=== PATIENT | female | born 1965 | race Caucasian/White ===

== ENCOUNTER → 2017-04-28 | Outpatient (CLI) | payer MEDICARE, OTHER ==
[2017-04-28 16:56] LABS: Blood Urea Nitrogen 17 mg/dL (7-17); Carbamazepine (Tegretol) 6.8 ug/mL; Non-African American GFR(MDRD) >60 (>60 ml/min/1.73 sqM)
== END | disposition home or self-care (01) ==
LOC: LABWHC1 16:25
PROVIDERS: ATTEND Psychiatry & Neurology Neurology
DX: G40.909 Epilepsy, unspecified, not intractable, without status epilepticus (principal)
CPT/HCPCS: 36415; 80156; 82565; 84520

== ENCOUNTER → 2017-04-29 | Outpatient (CLI) | payer MEDICARE, OTHER ==
--- NOTE | 2017-04-29 11:41 | MR ---
EXAMINATION TYPE: MR brain wo/w con DATE OF EXAM: 04/29/2017 COMPARISON: NONE HISTORY: brain tumor, seizure disorder, dizziness TECHNIQUE: Multiplanar, multisequence images of the brain and brainstem is performed without and with IV contras t, utilizing 15 mL intravenous MultiHance . FINDINGS: Diffusion weighted images demonstrate no evidence of a recent infarct or other diffusion ab normality. There is no extra-axial fluid collection. Encephalomalacia with some surrounding white m atter signal change compatible with chronic infarct involving the external capsule on the left. Extra -axial phenomenon present at the left lateral ventricle. The brain volume is age appropriate. Midline structures demonstrate normal morphology. The craniocervical junction appears within normal limits. Post contrast images demonstrate no abnormal enhancement. The dural venous sinuses appear pa tent. The visualized sinuses are clear and the globes are intact. IMPRESSION: Chronic infarct as described.
== END | disposition home or self-care (01) ==
LOC: RADMRIMAIN 09:35
PROVIDERS: ATTEND Psychiatry & Neurology Neurology
DX: I63.9 Cerebral infarction, unspecified (principal)
CPT/HCPCS: 70553; A9577

== ENCOUNTER 2019-04-07 15:43 | Emergency (ER) | payer MEDICARE ==
[2019-04-07 15:54] VITALS: RESP 18
[2019-04-07] MEDS ORDERED: SODIUM CHLORIDE 0.9% 1,000 ML IV ONE (16:26)
[2019-04-07 16:36] LABS: Glucose,Whole Blood 100 mg/dL (75-99)
[2019-04-07 16:38] LABS: Basophils % (A) 0 %; Eosinophils # (A) 0.1 k/uL (0-0.7); Eosinophils % (A) 2 %; HCT 25.1 % (34.0-46.0); HGB 7.7 gm/dL (11.4-16.0); Hypochromasia Marked; Lymphocytes # (A) 1.6 k/uL (1.0-4.8); Lymphocytes % (A) 23 %; MCH 24.6 pg (25.0-35.0); MCHC 30.5 g/dL (31.0-37.0); MCV 80.7 fL (80.0-100.0); Mean Platelet Volume 6.4; Monocytes # (A) 0.4 k/uL (0-1.0); Monocytes % (A) 6 %; Neutrophils # (A) 4.5 k/uL (1.3-7.7); Neutrophils % (A) 67 %; Platelet Count 420 k/uL (150-450); RBC 3.11 m/uL (3.80-5.40); RDW 15.6 % (11.5-15.5); WBC 6.8 k/uL (3.8-10.6)
[2019-04-07 16:45] LABS: Albumin 3.7 g/dL (3.5-5.0); Calcium 8.6 mg/dL (8.4-10.2); Potassium 4.2 mmol/L (3.5-5.1); Total Bilirubin 0.2 mg/dL (0.2-1.3); Total Protein 6.5 g/dL (6.3-8.2)
[2019-04-07 16:46] LABS: Partial Thromboplastin Time 24.1 sec (22.0-30.0); Prothrombin Time 10.7 sec (9.0-12.0)
--- NOTE | 2019-04-07 16:48 | CT ---
EXAMINATION TYPE: CT brain wo con DATE OF EXAM: 04/07/2019 COMPARISON: MR scan brain 04/29/2017 HISTORY: Patient poor historian CT DLP: 1046.4 mGycm Automated exposure control for dose reduction was used. FINDINGS: There is large area of hypodensity involving the anterior and posterior left internal capsule consist ent with old infarct. There is no mass effect nor midline shift. There is some asymmetric enlargement of the left lateral ventricle. There is no evidence of intracranial hemorrhage. Calvarium is intact. IMPRESSION: OLD INFARCT LEFT INTERNAL CAPSULE. NO ACUTE INTRACRANIAL ABNORMALITY. NO CHANGE COMPARED TO OLD MR SC AN.
--- NOTE | 2019-04-07 17:02 | ED ---
Altered Mental Status HPI - General Chief Complaint: Altered Mental Status Stated Complaint: POSS SEIZURE Time Seen by Provider: 04/07/19 16:14 Source: patient, EMS, RN notes reviewed, old records reviewed Mode of arrival: EMS Limitations: no limitations - History of Present Illness Initial Comments: This is a 54-year-old female the ER for evaluation. Patient resents today for evaluation regarding altered mental status syncopal versus seizure event. Patient has history of seizures history of CVA. Patient was at the store she did fall backward cellophane eyes rolled her back. He was noted patient did not fall was lately ground presents by EMS. On arrival to EMS patient is currently postictal. Although improving. MD Complaint: altered mental status, other (Possible seizure) -: minutes(s) Severity: moderate Context: history of similar presentation Associated Symptoms: denies other symptoms - Related Data Home Medications Medication Instructions Recorded Confirmed carBAMazepine [TEGretol] 200 mg PO TID 02/17/14 04/07/19 Amitriptyline HCl [Elavil] 100 mg PO HS 04/07/19 04/07/19 Amoxicillin 500 mg PO Q8H 04/07/19 04/07/19 Citalopram Hydrobromide [CeleXA] 40 mg PO DAILY 04/07/19 04/07/19 Cyclobenzaprine [Flexeril] 10 mg PO TID 04/07/19 04/07/19 Levothyroxine Sodium [Synthroid] 100 mcg PO DAILY 04/07/19 04/07/19 Meloxicam [Mobic] 7.5 mg PO DAILY 04/07/19 04/07/19 Mirtazapine [Remeron] 45 mg PO HS 04/07/19 04/07/19 Pravastatin Sodium [Pravachol] 80 mg PO DAILY 04/07/19 04/07/19 Topiramate [Topamax] 100 mg PO BID 04/07/19 04/07/19 Previous Rx's Medication Instructions Recorded Nitrofurantoin Monohyd/M-Cryst 100 mg PO Q12HR #14 cap 04/07/19 [Macrobid] Allergies Allergy/AdvReac Type Severity Reaction Status Date / Time No Known Allergies Allergy Verified 04/07/19 15:54 Review of Systems ROS Statement: Those systems with pertinent positive or pertinent negative responses have been documented in the HPI. ROS Other: All systems not noted in ROS Statement are negative. Past Medical History Past Medical History: GERD/Reflux, Hyperlipidemia, Seizure Disorder Additional Past Medical History / Comment(s): hypothyroid , History of Any Multi-Drug Resistant Organisms: None Reported Past Surgical History: Cholecystectomy Past Psychological History: Anxiety, Depression Smoking Status: Never smoker Past Alcohol Use History: None Reported Past Drug Use History: None Reported General Exam Limitations: no limitations General appearance: alert, in no apparent distress Head exam: Present: atraumatic, normocephalic, normal inspection Eye exam: Present: normal appearance, PERRL, EOMI. Absent: scleral icterus, conjunctival injection, periorbital swelling ENT exam: Present: normal exam, mucous membranes moist Neck exam: Present: normal inspection. Absent: tenderness, meningismus, lymphadenopathy Respiratory exam: Present: normal lung sounds bilaterally. Absent: respiratory distress, wheezes, rales, rhonchi, stridor Cardiovascular Exam: Present: regular rate, normal rhythm, normal heart sounds. Absent: systolic murmur, diastolic murmur, rubs, gallop, clicks GI/Abdominal exam: Present: soft, normal bowel sounds. Absent: distended, tenderness, guarding, rebound, rigid Extremities exam: Present: normal inspection, full ROM, normal capillary refill. Absent: tenderness, pedal edema, joint swelling, calf tenderness Back exam: Present: normal inspection Neurological exam: Present: alert, oriented X3, CN II-XII intact Psychiatric exam: Present: normal affect, normal mood Skin exam: Present: warm, dry, intact, normal color. Absent: rash Course Vital Signs 04/07/19 04/07/19 15:51 16:49 Temperature 98.5 F Pulse Rate 63 83 Respiratory 18 18 Rate Blood Pressure 117/80 125/80 O2 Sat by Pulse 98 98 Oximetry - Reevaluation(s) Reevaluation #1: 04/07/19 17:45 Medical records reviewed Reevaluation #2: 04/07/19 17:45 She continues to feel asymptomatic and fine here in the ER Reevaluation #3: 04/07/19 17:45 Patient completely awake and alert Reevaluation #4: 04/07/19 17:45 Patient states she's taking all medications as directed Medical Decision Making - Medical Decision Making D4 female the ER for evaluation of altered mental status versus seizure likely seizure versus near syncope. Patient will continue seizure medications at home and can be discharged - Lab Data Result diagrams: 04/07/19 15:56 04/07/19 15:56 Lab Results 04/07/19 04/07/19 04/07/19 Range/Units 15:56 15:56 15:56 WBC 6.8 (3.8-10.6) k/uL RBC 3.11 L (3.80-5.40) m/uL Hgb 7.7 L (11.4-16.0) gm/dL Hct 25.1 L (34.0-46.0) % MCV 80.7 (80.0-100.0) fL MCH 24.6 L (25.0-35.0) pg MCHC 30.5 L (31.0-37.0) g/dL RDW 15.6 H (11.5-15.5) % Plt Count 420 (150-450) k/uL Neutrophils % 67 % Lymphocytes % 23 % Monocytes % 6 % Eosinophils % 2 % Basophils % 0 % Neutrophils # 4.5 (1.3-7.7) k/uL Lymphocytes # 1.6 (1.0-4.8) k/uL Monocytes # 0.4 (0-1.0) k/uL Eosinophils # 0.1 (0-0.7) k/uL Basophils # 0.0 (0-0.2) k/uL Hypochromasia Marked PT 10.7 (9.0-12.0) sec INR 1.0 (<1.2) APTT 24.1 (22.0-30.0) sec Sodium 136 L (137-145) mmol/L Potassium 4.2 (3.5-5.1) mmol/L Chloride 107 (98-107) mmol/L Carbon Dioxide 19 L (22-30) mmol/L Anion Gap 10 mmol/L BUN 10 (7-17) mg/dL Creatinine 1.03 (0.52-1.04) mg/dL Est GFR (CKD-EPI)AfAm 71 (>60 ml/min/1.73 sqM) Est GFR (CKD-EPI)NonAf 61 (>60 ml/min/1.73 sqM) Glucose 99 (74-99) mg/dL POC Glucose (mg/dL) (75-99) mg/dL POC Glu Director Of Cardiac Rehabilitation ID Calcium 8.6 (8.4-10.2) mg/dL Total Bilirubin 0.2 (0.2-1.3) mg/dL AST 18 (14-36) U/L ALT 19 (9-52) U/L Alkaline Phosphatase 122 (38-126) U/L Creatine Kinase 138 H (30-135) U/L Troponin I (0.000-0.034) ng/mL Total Protein 6.5 (6.3-8.2) g/dL Albumin 3.7 (3.5-5.0) g/dL Urine Color Urine Appearance (Clear) Urine pH (5.0-8.0) Ur Specific [place] (1.001-1.035) Urine Protein (Negative) Urine Glucose (UA) (Negative) Urine Ketones (Negative) Urine Blood (Negative) Urine Nitrite (Negative) Urine Bilirubin (Negative) Urine Urobilinogen (<2.0) mg/dL Ur Leukocyte Esterase (Negative) Urine RBC (0-5) /hpf Urine WBC (0-5) /hpf Urine WBC Clumps (None) /hpf Ur Squamous Epith Cells (0-4) /hpf Hyaline Casts (0-2) /lpf Urine Mucus (None) /hpf Urine Opiates Screen (NotDetected) Ur Oxycodone Screen (NotDetected) Urine Methadone Screen (NotDetected) Ur Propoxyphene Screen (NotDetected) Ur Barbiturates Screen (NotDetected) Carbamazepine ug/mL U Tricyclic Antidepress (NotDetected) Ur Phencyclidine Scrn (NotDetected) Ur Amphetamines Screen (NotDetected) U Methamphetamines Scrn (NotDetected) U Benzodiazepines Scrn (NotDetected) Urine Cocaine Screen (NotDetected) U Marijuana (THC) Screen (NotDetected) 04/07/19 04/07/19 04/07/19 Range/Units 15:56 15:56 16:34 WBC (3.8-10.6) k/uL RBC (3.80-5.40) m/uL Hgb (11.4-16.0) gm/dL Hct (34.0-46.0) % MCV (80.0-100.0) fL MCH (25.0-35.0) pg MCHC (31.0-37.0) g/dL RDW (11.5-15.5) % Plt Count (150-450) k/uL Neutrophils % % Lymphocytes % % Monocytes % % Eosinophils % % Basophils % % Neutrophils # (1.3-7.7) k/uL Lymphocytes # (1.0-4.8) k/uL Monocytes # (0-1.0) k/uL Eosinophils # (0-0.7) k/uL Basophils # (0-0.2) k/uL Hypochromasia PT (9.0-12.0) sec INR (<1.2) APTT (22.0-30.0) sec Sodium (137-145) mmol/L Potassium (3.5-5.1) mmol/L Chloride (98-107) mmol/L Carbon Dioxide (22-30) mmol/L Anion Gap mmol/L BUN (7-17) mg/dL Creatinine (0.52-1.04) mg/dL Est GFR (CKD-EPI)AfAm (>60 ml/min/1.73 sqM) Est GFR (CKD-EPI)NonAf (>60 ml/min/1.73 sqM) Glucose (74-99) mg/dL POC Glucose (mg/dL) 100 H (75-99) mg/dL POC Glu Director Of Cardiac Rehabilitation ID Nayely Reinoso Calcium (8.4-10.2) mg/dL Total Bilirubin (0.2-1.3) mg/dL AST (14-36) U/L ALT (9-52) U/L Alkaline Phosphatase (38-126) U/L Creatine Kinase (30-135) U/L Troponin I <0.012 (0.000-0.034) ng/mL Total Protein (6.3-8.2) g/dL Albumin (3.5-5.0) g/dL Urine Color Urine Appearance (Clear) Urine pH (5.0-8.0) Ur Specific [place] (1.001-1.035) Urine Protein (Negative) Urine Glucose (UA) (Negative) Urine Ketones (Negative) Urine Blood (Negative) Urine Nitrite (Negative) Urine Bilirubin (Negative) Urine Urobilinogen (<2.0) mg/dL Ur Leukocyte Esterase (Negative) Urine RBC (0-5) /hpf Urine WBC (0-5) /hpf Urine WBC Clumps (None) /hpf Ur Squamous Epith Cells (0-4) /hpf Hyaline Casts (0-2) /lpf Urine Mucus (None) /hpf Urine Opiates Screen (NotDetected) Ur Oxycodone Screen (NotDetected) Urine Methadone Screen (NotDetected) Ur Propoxyphene Screen (NotDetected) Ur Barbiturates Screen (NotDetected) Carbamazepine 9.7 ug/mL U Tricyclic Antidepress (NotDetected) Ur Phencyclidine Scrn (NotDetected) Ur Amphetamines Screen (NotDetected) U Methamphetamines Scrn (NotDetected) U Benzodiazepines Scrn (NotDetected) Urine Cocaine Screen (NotDetected) U Marijuana (THC) Screen (NotDetected) 04/07/19 04/07/19 Range/Units 17:11 17:11 WBC (3.8-10.6) k/uL RBC (3.80-5.40) m/uL Hgb (11.4-16.0) gm/dL Hct (34.0-46.0) % MCV (80.0-100.0) fL MCH (25.0-35.0) pg MCHC (31.0-37.0) g/dL RDW (11.5-15.5) % Plt Count (150-450) k/uL Neutrophils % % Lymphocytes % % Monocytes % % Eosinophils % % Basophils % % Neutrophils # (1.3-7.7) k/uL Lymphocytes # (1.0-4.8) k/uL Monocytes # (0-1.0) k/uL Eosinophils # (0-0.7) k/uL Basophils # (0-0.2) k/uL Hypochromasia PT (9.0-12.0) sec INR (<1.2) APTT (22.0-30.0) sec Sodium (137-145) mmol/L Potassium (3.5-5.1) mmol/L Chloride (98-107) mmol/L Carbon Dioxide (22-30) mmol/L Anion Gap mmol/L BUN (7-17) mg/dL Creatinine (0.52-1.04) mg/dL Est GFR (CKD-EPI)AfAm (>60 ml/min/1.73 sqM) Est GFR (CKD-EPI)NonAf (>60 ml/min/1.73 sqM) Glucose (74-99) mg/dL POC Glucose (mg/dL) (75-99) mg/dL POC Glu Director Of Cardiac Rehabilitation ID Calcium (8.4-10.2) mg/dL Total Bilirubin (0.2-1.3) mg/dL AST (14-36) U/L ALT (9-52) U/L Alkaline Phosphatase (38-126) U/L Creatine Kinase (30-135) U/L Troponin I (0.000-0.034) ng/mL Total Protein (6.3-8.2) g/dL Albumin (3.5-5.0) g/dL Urine Color Yellow Urine Appearance Clear (Clear) Urine pH 6.5 (5.0-8.0) Ur Specific [place] 1.012 (1.001-1.035) Urine Protein Negative (Negative) Urine Glucose (UA) Negative (Negative) Urine Ketones Negative (Negative) Urine Blood Negative (Negative) Urine Nitrite Negative (Negative) Urine Bilirubin Negative (Negative) Urine Urobilinogen <2.0 (<2.0) mg/dL Ur Leukocyte Esterase Large H (Negative) Urine RBC 1 (0-5) /hpf Urine WBC 35 H (0-5) /hpf Urine WBC Clumps Occasional H (None) /hpf Ur Squamous Epith Cells <1 (0-4) /hpf Hyaline Casts 1 (0-2) /lpf Urine Mucus Rare H (None) /hpf Urine Opiates Screen Not Detected (NotDetected) Ur Oxycodone Screen Not Detected (NotDetected) Urine Methadone Screen Not Detected (NotDetected) Ur Propoxyphene Screen Not Detected (NotDetected) Ur Barbiturates Screen Not Detected (NotDetected) Carbamazepine ug/mL U Tricyclic Antidepress Detected H (NotDetected) Ur Phencyclidine Scrn Not Detected (NotDetected) Ur Amphetamines Screen Not Detected (NotDetected) U Methamphetamines Scrn Not Detected (NotDetected) U Benzodiazepines Scrn Not Detected (NotDetected) Urine Cocaine Screen Not Detected (NotDetected) U Marijuana (THC) Screen Not Detected (NotDetected) - EKG Data -: EKG Interpreted by Me (EKG shows sinus rhythm rate of 70, WV 170, QRS 90, QTc 490) - Radiology Data Radiology results: report reviewed (CT brain is negative for acute disease), image reviewed Disposition Clinical Impression: Altered mental status, Recurrent seizures, Near syncope Disposition: HOME SELF-CARE Condition: Good Instructions (If sedation given, give patient instructions): Altered Mental Status (ED), Recurrent Seizures in Adults (ED) Prescriptions: Nitrofurantoin Monohyd/M-Cryst [Macrobid] 100 mg PO Q12HR #14 cap Is patient prescribed a controlled substance at d/c from ED?: No Referrals: None,Stated [Primary Care Provider] - 1-2 days
[2019-04-07 17:25] LABS: Appearance,Urine Clear (Clear); Bilirubin,Urine Negative (Negative); Blood,Urine Negative (Negative); Color,Urine Yellow; Glucose,Urine (UA) Negative (Negative); Hyaline Casts,Urine 1 /lpf (0-2); Ketones,Urine Negative (Negative); Leukocyte Esterase,Urine Large (Negative); Mucus,Urine Rare /hpf; Nitrite,Urine Negative (Negative); PH, Urine 6.5 (5.0-8.0); Protein,Urine Negative (Negative); RBC,Urine 1 /hpf (0-5); Specific Gravity,Urine 1.012 (1.001-1.035); Squamous Epithelial Cell,Urine <1 /hpf (0-4); Urobilinogen,Urine <2.0 mg/dL (<2.0); WBC,Urine 35 /hpf (0-5)
[2019-04-07 17:32] LABS: Amphetamine Screen,Urine Not Detected (NotDetected); Barbiturate Screen,Urine Not Detected (NotDetected); Benzodiazepines Screen,Urine Not Detected (NotDetected); Cocaine Screen,Urine Not Detected (NotDetected); Methadone Screen, Urine Not Detected (NotDetected); Opiate Screen,Urine Not Detected (NotDetected); Oxycodone Screen, Urine Not Detected (NotDetected); Phencyclidine Screen,Urine Not Detected (NotDetected); Tricyclic Antidepressant,Urine Detected (NotDetected); Urn Cannabinoid Scrn Not Detected (NotDetected)
[2019-04-07] MEDS ORDERED: KETOROLAC 30 MG/ML 1 ML VIAL IVP STA (17:43)
[2019-04-07 18:44] VITALS: BP 114/75; PULSE 78; TEMP 98
== END 2019-04-07 18:44 | disposition home or self-care (01) ==
LOC: EC 15:43
DX: G40.909 Epilepsy, unspecified, not intractable, without status epilepticus (principal); R41.82 Altered mental status, unspecified; R55 Syncope and collapse; E78.5 Hyperlipidemia, unspecified; E03.9 Hypothyroidism, unspecified; F41.9 Anxiety disorder, unspecified; F32.9 Major depressive disorder, single episode, unspecified; Z86.73 Personal history of transient ischemic attack (TIA), and cerebral infarction without residual deficits; Z90.49 Acquired absence of other specified parts of digestive tract; Z79.1 Long term (current) use of non-steroidal anti-inflammatories (NSAID); Z79.890 Hormone replacement therapy; Z79.899 Other long term (current) drug therapy
CPT/HCPCS: 36415; 93005; 80156; 80053; 80201; 82550; 84484; 85025; 85610; 85730; 81001; 80306; 87086; 70450; 99285; 96365; 96361 ×2; J0696

== ENCOUNTER → 2019-10-18 | Outpatient (CLI) | payer MEDICARE ==
--- NOTE | 2019-10-19 13:19 | MM ---
Reason for exam: screening (asymptomatic). Baseline mammogram. History: Patient is postmenopausal and is nulliparous. Physical Findings: A clinical breast exam by your physician is recommended on an annual basis and results should be correlated with mammographic findings. MG 3D Screening Mammo W/Cad Bilateral CC and MLO view(s) were taken. The breast tissue is heterogeneously dense. This may lower the sensitivity of mammography. Finding #1: There is a 12 mm high density mass in the upper quadrant, central position of the left breast. Finding #2: There are typically benign calcifications in the right breast. ASSESSMENT: Incomplete: need additional imaging evaluation, BI-RAD 0 RECOMMENDATION: Special view mammogram of the left breast. If lesion persists on supplemental views, image directed ultrasound is recommended. [facility] will attempt to contact patient to return for supplemental views and ultrasound if indicated.
== END | disposition home or self-care (01) ==
LOC: RADMAMWWP 13:36
PROVIDERS: ATTEND Family Medicine
DX: Z12.31 Encounter for screening mammogram for malignant neoplasm of breast (principal)
CPT/HCPCS: 77063; 77067

== ENCOUNTER → 2019-11-15 | Outpatient (CLI) | payer MEDICARE ==
--- NOTE | 2019-11-15 11:27 | MM ---
Reason for exam: additional evaluation requested from abnormal screening. Last mammogram was performed 1 month ago. History: Patient is postmenopausal and is nulliparous. Family history of breast cancer in sister and breast cancer in mother at age 78. Physical Findings: Nurse did not find any significant physical abnormalities on exam. MG Work Up Mamm w CAD LT Spot compression CC, spot compression MLO, and LM view(s) were taken of the left breast. Prior study comparison: October 18, 2019, bilateral MG 3d screening mammo w/cad. The breast tissue is heterogeneously dense. This may lower the sensitivity of mammography. Central asymmetric density on the CC view, incompletely disperses on spot CC. Some asymmetric density remains on the LM view. No persisting abnormality on spot ML. These results were verbally communicated with the patient and result sheet given to the patient on 11/15/19. ASSESSMENT: Incomplete: need additional imaging evaluation, BI-RAD 0 RECOMMENDATION: Ultrasound of the left breast. (11-1 o'clock)
--- NOTE | 2019-11-15 11:28 | USB ---
Reason for exam: additional evaluation requested from abnormal screening. History: Patient is postmenopausal and is nulliparous. Family history of breast cancer in sister and breast cancer in mother at age 78. US Breast Workup Limited LT Technologist: Sherry Lilly Left limited breast ultrasound including focal area of concern, retroareolar and axilla demonstrates no cystic or solid lesion seen. Scanned 11-2 o'clock. Dense tissues seen at 1 o'clock. These results were verbally communicated with the patient and result sheet given to the patient on 11/15/19. ASSESSMENT: Probably benign, BI-RAD 3 RECOMMENDATION: Follow-up diagnostic mammogram of the left breast in 6 months.
== END | disposition home or self-care (01) ==
LOC: RADMAMWWP 08:57
PROVIDERS: ATTEND Family Medicine
DX: R92.8 Other abnormal and inconclusive findings on diagnostic imaging of breast (principal)
CPT/HCPCS: 77065

== ENCOUNTER 2022-09-12 15:38 | Emergency (ER) | payer MEDICARE, OTHER ==
[2022-09-12 16:02] VITALS: RESP 18; TEMP 98
--- NOTE | 2022-09-12 17:33 | ED ---
General Adult HPI - General Chief complaint: Altered Mental Status Stated complaint: mental health Time Seen by Provider: 09/12/22 16:36 Source: patient Mode of arrival: ambulatory Limitations: altered mental status - History of Present Illness Initial comments: This patient is a 57-year-old woman brought to have evaluation after suspected seizure. The patient's gives most of the history. He states she does have underlying seizure history, having proximally 3-4 seizures per year. She is on anticonvulsant medication. He relates that he had taken her with him as he was doing a job at a store. When he went to find her, she was confused and appeared to him as if she had had a seizure. He brings her here to have evaluation. He states that she is now back at her baseline. The patient is denying pains. She denies dyspnea. Onset/Timin -: hour(s) Severity scale (1-10): 0 Improves with: none Worsens with: none Associated Symptoms: denies other symptoms - Related Data Home Medications Medication Instructions Recorded Confirmed carBAMazepine [TEGretol] 200 mg PO TID 02/17/14 09/12/22 Citalopram Hydrobromide [CeleXA] 40 mg PO DAILY 04/07/19 09/12/22 Mirtazapine [Remeron] 45 mg PO HS 04/07/19 09/12/22 Pravastatin Sodium [Pravachol] 80 mg PO DAILY 04/07/19 09/12/22 Baclofen [Lioresal] 10 mg PO BID 09/12/22 09/12/22 Levothyroxine Sodium [Synthroid] 125 mcg PO [id number] 09/12/22 09/12/22 Metoprolol Tartrate [Lopressor] 12.5 mg PO BID 09/12/22 09/12/22 Omeprazole [PriLOSEC] 40 mg PO DAILY 09/12/22 09/12/22 Allergies Allergy/AdvReac Type Severity Reaction Status Date / Time No Known Allergies Allergy Verified 09/12/22 18:02 Review of Systems ROS Statement: Those systems with pertinent positive or pertinent negative responses have been documented in the HPI. ROS Other: All systems not noted in ROS Statement are negative. Limitations: ROS unobtainable due to patients medical condition Constitutional: Denies: fever Respiratory: Denies: cough, dyspnea Cardiovascular: Denies: chest pain Gastrointestinal: Denies: abdominal pain, vomiting Neurological: Reports: as per HPI, confusion. Denies: headache Past Medical History Past Medical History: GERD/Reflux, Hyperlipidemia, Seizure Disorder Additional Past Medical History / Comment(s): hypothyroid , History of Any Multi-Drug Resistant Organisms: None Reported Past Surgical History: Cholecystectomy Past Psychological History: Anxiety, Depression Past Alcohol Use History: None Reported Past Drug Use History: None Reported General Exam Limitations: no limitations General appearance: alert, in no apparent distress Head exam: Present: atraumatic, normocephalic Eye exam: Present: normal appearance. Absent: scleral icterus, conjunctival injection Neck exam: Present: normal inspection, full ROM. Absent: meningismus Respiratory exam: Present: normal lung sounds bilaterally. Absent: respiratory distress, wheezes, rales, rhonchi, stridor Cardiovascular Exam: Present: regular rate, normal rhythm, normal heart sounds. Absent: systolic murmur, diastolic murmur, rubs, gallop GI/Abdominal exam: Present: soft. Absent: distended, tenderness, guarding, rebound, rigid, mass Extremities exam: Present: normal inspection, normal capillary refill. Absent: pedal edema, calf tenderness Back exam: Present: normal inspection. Absent: CVA tenderness (R), CVA ten derness (L) Neurological exam: Present: alert, other. Absent: oriented X3, motor sensory deficit Skin exam: Present: warm, dry, intact, normal color. Absent: rash Course Vital Signs 09/12/22 09/12/22 15:54 18:55 Temperature 98 F Pulse Rate 62 60 Respiratory 18 18 Rate Blood Pressure 101/67 105/52 O2 Sat by Pulse 98 99 Oximetry EKG Findings - EKG Comments: EKG Findings:: There is a possible right ventricular conduction delay based on RSR prime in V1. Low-voltage QRS complex - EKG Results: EKG: interpreted by JULI, sinus rhythm (Rate 58 bpm) Medical Decision Making - Medical Decision Making Patient's 57-year-old woman with history of known seizure disorder, suspected of having seizure tonight. She has returned to baseline. The workup here is unremarkable. Discussed appropriate further care and follow-up with patient and patient's . - Lab Data Result diagrams: 09/12/22 19:55 09/12/22 19:55 Lab Results 09/12/22 09/12/22 09/12/22 Range/Units 19:55 19:55 19:55 WBC 6.6 (3.8-10.6) k/uL RBC 4.02 (3.80-5.40) m/uL Hgb 12.8 (11.4-16.0) gm/dL Hct 37.4 (34.0-46.0) % MCV 93.1 (80.0-100.0) fL MCH 31.8 (25.0-35.0) pg MCHC 34.2 (31.0-37.0) g/dL RDW 11.3 L (11.5-15.5) % Plt Count 272 (150-450) k/uL MPV 7.2 Neutrophils % 57 % Lymphocytes % 34 % Monocytes % 5 % Eosinophils % 1 % Basophils % 1 % Neutrophils # 3.8 (1.3-7.7) k/uL Lymphocytes # 2.2 (1.0-4.8) k/uL Monocytes # 0.4 (0-1.0) k/uL Eosinophils # 0.1 (0-0.7) k/uL Basophils # 0.1 (0-0.2) k/uL Sodium 137 (137-145) mmol/L Potassium 4.5 (3.5-5.1) mmol/L Chloride 104 (98-107) mmol/L Carbon Dioxide 28 (22-30) mmol/L Anion Gap 5 mmol/L BUN 14 (7-17) mg/dL Creatinine 0.78 (0.52-1.04) mg/dL Est GFR (CKD-EPI)AfAm >90 (>60 ml/min/1.73 sqM) Est GFR (CKD-EPI)NonAf 84 (>60 ml/min/1.73 sqM) Glucose 96 (74-99) mg/dL Calcium 9.2 (8.4-10.2) mg/dL Total Bilirubin 0.3 (0.2-1.3) mg/dL AST 23 (14-36) U/L ALT 32 (4-34) U/L Alkaline Phosphatase 140 H (38-126) U/L Troponin I <0.012 (0.000-0.034) ng/mL Total Protein 6.8 (6.3-8.2) g/dL Albumin 3.9 (3.5-5.0) g/dL Disposition Clinical Impression: Altered mental status Narrative: Possible seizure Disposition: HOME SELF-CARE Condition: Good Instructions (If sedation given, give patient instructions): Seizure/Epilepsy Discharge Instructions & Follow-Up Is patient prescribed a controlled substance at d/c from ED?: No Referrals: Sharri Yu MD [Primary Care Provider] - 1-2 days Errol Welch MD [STAFF PHYSICIAN] - 1-2 days
[2022-09-12 18:56] VITALS: BP 105/52; PULSE 60
--- NOTE | 2022-09-12 19:44 | XR ---
EXAMINATION TYPE: XR chest 1V portable DATE OF EXAM: 09/12/2022 COMPARISON: None INDICATION: Altered mental status TECHNIQUE: Single frontal view of the chest is obtained. FINDINGS: The heart size is enlarged. The pulmonary vasculature is normal. Mild left lower lobe infiltrate may be present. Correlate for atelectasis or small effusion IMPRESSION: 1. Left lower lobe infiltrate with silhouetting the diaphragm. Chronic atelectasis or effusion. Follo w-up can be performed. 2. Mild cardiomegaly
[2022-09-12 20:10] LABS: Basophils # (A) 0.1 k/uL (0-0.2); Basophils % (A) 1 %; Eosinophils # (A) 0.1 k/uL (0-0.7); Eosinophils % (A) 1 %; HCT 37.4 % (34.0-46.0); HGB 12.8 gm/dL (11.4-16.0); Lymphocytes # (A) 2.2 k/uL (1.0-4.8); Lymphocytes % (A) 34 %; MCH 31.8 pg (25.0-35.0); MCHC 34.2 g/dL (31.0-37.0); MCV 93.1 fL (80.0-100.0); Mean Platelet Volume 7.2; Monocytes # (A) 0.4 k/uL (0-1.0); Monocytes % (A) 5 %; Neutrophils # (A) 3.8 k/uL (1.3-7.7); Neutrophils % (A) 57 %; Platelet Count 272 k/uL (150-450); RBC 4.02 m/uL (3.80-5.40); RDW 11.3 % (11.5-15.5); WBC 6.6 k/uL (3.8-10.6)
[2022-09-12 20:25] LABS: ALT 32 U/L (4-34); AST 23 U/L (14-36); African American GFR (CKD) >90 (>60 ml/min/1.73 sqM); Albumin 3.9 g/dL (3.5-5.0); Alkaline Phosphatase 140 U/L (38-126); Anion Gap 5 mmol/L; Blood Urea Nitrogen 14 mg/dL (7-17); Calcium 9.2 mg/dL (8.4-10.2); Carbon Dioxide 28 mmol/L (22-30); Chloride 104 mmol/L (98-107); Glucose 96 mg/dL (74-99); Non-African American GFR(CKD) 84 (>60 ml/min/1.73 sqM); Potassium 4.5 mmol/L (3.5-5.1); Sodium 137 mmol/L (137-145); Total Bilirubin 0.3 mg/dL (0.2-1.3); Total Protein 6.8 g/dL (6.3-8.2)
== END 2022-09-12 21:29 | disposition home or self-care (01) ==
LOC: EC 15:38
DX: R41.0 Disorientation, unspecified (principal); K21.9 Gastro-esophageal reflux disease without esophagitis; E78.5 Hyperlipidemia, unspecified; F41.9 Anxiety disorder, unspecified; G40.909 Epilepsy, unspecified, not intractable, without status epilepticus; F32.A Depression, unspecified; Z79.84 Long term (current) use of oral hypoglycemic drugs; Z79.899 Other long term (current) drug therapy
CPT/HCPCS: 36415; 71045; 80053; 84484; 85025; 93005; 99285

== ENCOUNTER → 2022-12-26 | Outpatient (CLI) | payer MEDICARE, OTHER ==
[2022-12-26 15:49] LABS: African American GFR (CKD) >90 (>60 ml/min/1.73 sqM); Blood Urea Nitrogen 16 mg/dL (7-17); Non-African American GFR(CKD) >90 (>60 ml/min/1.73 sqM)
--- NOTE | 2022-12-27 11:17 | CT ---
EXAMINATION TYPE: CT abdomen pelvis wo/w con CT DLP: 1989 mGycm, Automated exposure control for dose reduction was used. DATE OF EXAM: 12/26/2022 4:55 PM COMPARISON: None CLINICAL INDICATION:Female, 57 years old with history of R63.4 ABNORMAL WEIGHT LOSS; weight loss grea ter than 50 pounds x 6 months TECHNIQUE: Axial CT of the abdomen and pelvis. Sagittal and coronal reformats were created on a Xan[employer] workstation. Imaging was performed with and without IV contrast. Contrast used:100 cc mL of Isovue 300 without and with IV Contrast, Oral contrast used: with Oral Contrast FINDINGS: LOWER CHEST: Unremarkable ABDOMEN LIVER: Unremarkable GALLBLADDER AND BILE DUCTS: The gallbladder is surgically absent. PANCREAS: Fatty atrophy changes of the pancreatic head and neck. SPLEEN: Unremarkable. ADRENAL GLANDS: Unremarkable. KIDNEYS AND URETERS: No evidence of hydronephrosis or renal calculus. The ureters are unremarkable. PELVIS BLADDER: Unremarkable REPRODUCTIVE: Unremarkable. ABDOMEN & PELVIS STOMACH AND BOWEL: Large hiatal hernia is present. No evidence of bowel obstruction. PERITONEUM/RETROPERITONEUM: No evidence of pneumoperitoneum or free fluid. VASCULATURE: No evidence of aortic aneurysm. MUSCULOSKELETAL: No acute osseous abnormalities LYMPH NODES: No gross evidence for lymphadenopathy. SOFT TISSUE/ABDOMINAL WALL: Unremarkable IMPRESSION: 1. Large hiatal hernia. 2. No evidence for acute process.\ 3. No evidence of mass.
== END | disposition home or self-care (01) ==
LOC: RADCTMAIN 14:17
PROVIDERS: ATTEND Internal Medicine Gastroenterology
DX: K44.9 Diaphragmatic hernia without obstruction or gangrene (principal); R63.4 Abnormal weight loss
CPT/HCPCS: 82565; 84520; 74178; 36415; Q9967

== ENCOUNTER 2023-12-17 17:33 | Observation (INO) | payer MEDICARE, OTHER ==
--- NOTE | 2023-12-17 18:02 | ED ---
General Adult HPI - General Chief complaint: Fall Stated complaint: Altered Mental Status Time Seen by Provider: 12/17/23 17:34 Source: patient, EMS, RN notes reviewed, old records reviewed Mode of arrival: EMS Limitations: no limitations - History of Present Illness Initial comments: Patient is a 58-year-old female presenting from assisted after being found on the ground. Patient unable to provide any history at this time. Patient does have history of seizures. Unclear last tetanus immunization. Patient is on Tegretol and Depakote. - Related Data Home Medications Medication Instructions Recorded Confirmed carBAMazepine [TEGretol] 200 mg PO TID 02/17/14 09/12/22 Citalopram Hydrobromide [CeleXA] 40 mg PO DAILY 04/07/19 09/12/22 Mirtazapine [Remeron] 45 mg PO HS 04/07/19 09/12/22 Pravastatin Sodium [Pravachol] 80 mg PO DAILY 04/07/19 09/12/22 Baclofen [Lioresal] 10 mg PO BID 09/12/22 09/12/22 Levothyroxine Sodium [Synthroid] 125 mcg PO AC-[id number] 09/12/22 09/12/22 Metoprolol Tartrate [Lopressor] 12.5 mg PO BID 09/12/22 09/12/22 Omeprazole [PriLOSEC] 40 mg PO DAILY 09/12/22 09/12/22 Allergies Allergy/AdvReac Type Severity Reaction Status Date / Time No Known Allergies Allergy Verified 12/17/23 17:43 Review of Systems ROS Statement: Those systems with pertinent positive or pertinent negative responses have been documented in the HPI. ROS Other: All systems not noted in ROS Statement are negative. Limitations: ROS unobtainable due to patients medical condition Past Medical History Past Medical History: GERD/Reflux, Hyperlipidemia, Seizure Disorder Additional Past Medical History / Comment(s): hypothyroid , History of Any Multi-Drug Resistant Organisms: None Reported Past Surgical History: Cholecystectomy Past Psychological History: Anxiety, Depression Past Alcohol Use History: None Reported Past Drug Use History: None Reported General Exam Limitations: no limitations General appearance: alert Head exam: Present: other (Ecchymosis left temporal. Laceration right lateral eyebrow) Eye exam: Present: normal appearance, PERRL Neck exam: Absent: tenderness Respiratory exam: Present: normal lung sounds bilaterally Cardiovascular Exam: Present: regular rate GI/Abdominal exam: Present: soft. Absent: tenderness Extremities exam: Present: normal inspection Neurological exam: Present: altered, other (Patient does not follow commands. Patient does have some clonic activity right lower extremity. No focal weakness. Nonverbal.) Skin exam: Present: other (Ecchymosis left temporal. Laceration right eyebrow) Course Vital Signs 12/17/23 12/17/23 17:39 17:43 Temperature 97.8 F Pulse Rate 73 Respiratory 20 18 Rate Blood Pressure 112/55 93/58 O2 Sat by Pulse 99 100 Oximetry EKG Findings - EKG Results: EKG: interpreted by ERMD, sinus rhythm, normal axis, normal QRS, normal ST/T Procedures - Laceration Laceration #1 Indication: laceration Site: face Size (cm): 2 Description: irregular Pre-repair: wound explored, irrigated extensively Type of Sutures: other (Closed with tissue adhesive) Patient Tolerated Procedure: well, no complications Medical Decision Making - Medical Decision Making Was pt. sent in by a medical professional or institution (Dr. PA, SCIENTIST/ENGINEER, urgent care, hospital, or assisted...) When possible be specific @ -Patient sent from nursing facility Did you speak to anyone other than the patient for history (EMS, parent, family, police, friend...)? What history was obtained from this source @ -EMs as patient is nonverbal at this time Did you review nursing and triage notes (agree or disagree)? Why? @ -I reviewed and agree with nursing and triage notes Were old charts reviewed (outside hosp., previous admission, EMS record, old EKG, old radiological studies, urgent care reports/EKG's, assisted records)? Report findings @ -Previous labs reviewed Differential Diagnosis (chest pain, altered mental status, abdominal pain women, abdominal pain men, vaginal bleeding, weakness, fever, dyspnea, syncope, headache, dizziness, GI bleed, back pain, seizure, CVA, palpatations, mental health, musculoskeletal)? @ -Differential Altered Mental Status: Hypoglycemia, DKA, hypercapnia, ETOH, overdose, CO poisoning, trauma, myxedema coma, HTN encephalopathy, infection, encephalitis, psychosis, intercranial hemorrhage, hepatic encephalopathy, meningitis, CVA, this is not meant to be an all-inclusive list EKG interpreted by me (3pts min.). @ -As above X-rays interpreted by me (1pt min.). @ -None done CT interpreted by me (1pt min.). @ -CT brain and cervical spine revealed no acute abnormality. Old left infarct. U/S interpreted by me (1pt. min.). @ -None done What testing was considered but not performed or refused? (CT, X-rays, U/S, labs)? Why? @ -None What meds were considered but not given or refused? Why? @ -None Did you discuss the management of the patient with other professionals ( professionals i.e. , PA, SCIENTIST/ENGINEER, lab, RT, psych nurse, mental health social worker, central office repairer supervisor, teacher, textile technical officer, case briefer)? Give summary @ -[facility], practitioner Madai Acevedo who will admit covering Dr. Harry Was smoking cessation discussed for >3mins.? @ -No Was critical care preformed (if so, how long)? @ -No Were there social determinants of health that impacted care today? How? (Homelessness, low income, unemployed, alcoholism, drug addiction, transportation, low edu. Level, literacy, decrease access to med. care, shelter, rehab)? @ -No Was there de-escalation of care discussed even if they declined (Discuss DNR or withdrawal of care, Hospice)? DNR status @ -No What co-morbidities impacted this encounter? (DM, HTN, Smoking, COPD, CAD, Cancer, CVA, ARF, Chemo, Hep., AIDS, mental health diagnosis, sleep apnea, morbid obesity)? @ -Seizure history Was patient admitted / discharged? Hospital course, mention meds given and route, prescriptions, significant lab abnormalities, going to OR and other pertinent info. @ -Patient presents after fall with altered mental status, questionable minimal seizure activity when she presented. Patient likely did have seizure and appears postictal at this time. Patient will be admitted. Admission orders written. Patient provided extra valproic acid Undiagnosed new problem with uncertain prognosis? @ -No Drug Therapy requiring intensive monitoring for toxicity (Heparin, Nitro, Insulin, Cardizem)? @ -No Were any procedures done? @ -No Diagnosis/symptom? @ -Altered mental status Acute, or Chronic, or Acute on Chronic? @ -Acute Uncomplicated (without systemic symptoms) or Complicated (systemic symptoms)? @ -Complicated with likely postictal state Side effects of treatment? @ -No Exacerbation, Progression, or Severe Exacerbation? @ -No Poses a threat to life or bodily function? How? (Chest pain, [place], [place], pneumonia, PE, COPD, DKA, ARF, appy, cholecystitis, CVA, Diverticulitis, Homicidal, Suicidal, threat to staff... and all critical care pts) @ -No - Lab Data Result diagrams: 12/17/23 18:02 12/17/23 18:02 Lab Results 12/17/23 12/17/23 Range/Units 18:02 18:02 WBC 5.2 (3.8-10.6) k/uL RBC 3.48 L (3.80-5.40) m/uL Hgb 10.6 L (11.4-16.0) gm/dL Hct 33.5 L (34.0-46.0) % MCV 96.5 (80.0-100.0) fL MCH 30.6 (25.0-35.0) pg MCHC 31.7 (31.0-37.0) g/dL RDW 12.6 (11.5-15.5) % Plt Count 236 (150-450) k/uL MPV 8.2 Neutrophils % 64 % Lymphocytes % 25 % Monocytes % 8 % Eosinophils % 0 % Basophils % 1 % Neutrophils # 3.3 (1.3-7.7) k/uL Lymphocytes # 1.3 (1.0-4.8) k/uL Monocytes # 0.4 (0-1.0) k/uL Eosinophils # 0.0 (0-0.7) k/uL Basophils # 0.0 (0-0.2) k/uL Sodium 139 (137-145) mmol/L Potassium 5.0 (3.5-5.1) mmol/L Chloride 110 H (98-107) mmol/L Carbon Dioxide 20 L (22-30) mmol/L Anion Gap 9 mmol/L BUN 14 (7-17) mg/dL Creatinine 0.65 (0.52-1.04) mg/dL Est GFR (CKD-EPI)AfAm >90 (>60 ml/min/1.73 sqM) Est GFR (CKD-EPI)NonAf >90 (>60 ml/min/1.73 sqM) Glucose 103 H (74-99) mg/dL Calcium 9.4 (8.4-10.2) mg/dL Magnesium 2.0 (1.6-2.3) mg/dL Total Bilirubin 0.6 (0.2-1.3) mg/dL AST 31 (14-36) U/L ALT 22 (4-34) U/L Alkaline Phosphatase 99 (38-126) U/L Total Protein 7.5 (6.3-8.2) g/dL Albumin 4.4 (3.5-5.0) g/dL Valproic Acid 52.0 ug/mL Disposition Clinical Impression: Eyebrow laceration, Altered mental status Disposition: ADMITTED IP TO THIS [facility] Instructions (If sedation given, give patient instructions): Skin Adhesive Care (ED) Is patient prescribed a controlled substance at d/c from ED?: No Referrals: Sharri Yu MD [Primary Care Provider] - 1-2 days Time of Disposition: 19:59
[2023-12-17] MEDS: DIPH,PERTUS(ACELL)TETVAC-LF 0.5 ML VIAL IM ONE (18:23)
[2023-12-17] MEDS: LORazepam 2 MG/ML INJ IV STA (18:25)
[2023-12-17] MEDS: TOPICAL SKIN ADHESIVE 1 EACH AMP TOPICAL ONE (18:26)
[2023-12-17 18:49] LABS: ALT 22 U/L (4-34); AST 31 U/L (14-36); African American GFR (CKD) >90 (>60 ml/min/1.73 sqM); Albumin 4.4 g/dL (3.5-5.0); Alkaline Phosphatase 99 U/L (38-126); Anion Gap 9 mmol/L; Blood Urea Nitrogen 14 mg/dL (7-17); Calcium 9.4 mg/dL (8.4-10.2); Carbon Dioxide 20 mmol/L (22-30); Chloride 110 mmol/L (98-107); Glucose 103 mg/dL (74-99); Non-African American GFR(CKD) >90 (>60 ml/min/1.73 sqM); Sodium 139 mmol/L (137-145); Total Bilirubin 0.6 mg/dL (0.2-1.3); Total Protein 7.5 g/dL (6.3-8.2)
[2023-12-17 18:57] LABS: Basophils % (A) 1 %; Eosinophils % (A) 0 %; HCT 33.5 % (34.0-46.0); HGB 10.6 gm/dL (11.4-16.0); Lymphocytes # (A) 1.3 k/uL (1.0-4.8); Lymphocytes % (A) 25 %; MCH 30.6 pg (25.0-35.0); MCHC 31.7 g/dL (31.0-37.0); MCV 96.5 fL (80.0-100.0); Mean Platelet Volume 8.2; Monocytes # (A) 0.4 k/uL (0-1.0); Monocytes % (A) 8 %; Neutrophils # (A) 3.3 k/uL (1.3-7.7); Neutrophils % (A) 64 %; Platelet Count 236 k/uL (150-450); RBC 3.48 m/uL (3.80-5.40); RDW 12.6 % (11.5-15.5); WBC 5.2 k/uL (3.8-10.6)
--- NOTE | 2023-12-17 19:48 | CT ---
EXAMINATION TYPE: CT brain cspine wo con CT DLP: 1283.2 mGycm, Automated exposure control for dose reduction was used. DATE OF EXAM: 12/17/2023 7:04 PM COMPARISON: CT head 04/07/2019 and MRI brain 04/29/2017 CLINICAL INDICATION:Female, 58 years old with history of fall; fall, ams TECHNIQUE: Brain: Multiple axial CT images of the brain were obtained without IV contrast. Cspine: Axial CT images from the skull base to the inferior aspect of T2 we obtained without intraven ous contrast. Coronal and sagittal reformatted images were also reviewed. FINDINGS: Brain: Extra-axial spaces: No abnormal extra-axial fluid collections. Ventricular system: Appear dilated in proportion to the degree of cerebral atrophy. Cerebral parenchyma: No increased attenuation to suggest acute intraparenchymal hemorrhage. The gra y-white matter interface appears maintained. Moderate generalized brain atrophy. Scattered and some confluent hypoattenuating areas are seen within the cerebral white matter, nonspecific but most ofte n seen with chronic microvascular ischemic changes; this is generally moderate in degree but overall appears somewhat greater since 2019. White matter hypoattenuation extends farther into the left front al lobe than before. Redemonstration of hypoattenuation in the region of the left external capsule wi th adjacent white matter hypoattenuation, compatible with remote infarct/insult which appears stable from priors. There are possibly tiny lacunar infarcts inferior to the right lateral ventricle and in the region of the left internal capsule. Cerebellum: No acute abnormality. Mass effect: No evidence of mass effect or midline shift. Intracranial vasculature: Unremarkable Soft tissues: There may be a small focus of subcutaneous gas superolateral to the right orbit, correl ate for any injury to this area. No radiopaque foreign body is seen. Visualized orbits: Orbital contents appear grossly intact. Calvarium/osseous structures: No evidence of calvarial fracture. Paranasal sinuses and mastoid air cells: No significant fluid accumulation. Mild mucosal thickening i n a left anterior ethmoid air cell. Nasal septum deviation towards the left with osseous spur in its midportion. MRI is more sensitive for detecting acute processes such as infarct, and may be considered if clinica lly warranted. Cervical spine: Fracture: None seen. Osseous structures, spinal canal/neural foramina: Craniocervical junction is intact. Bones appear frankie ewhat demineralized without evidence of focal destructive lesion. Degenerative changes of the anterio r C1-C2 articulation with preserved alignment. Small well-corticated ossific densities noted just pos terior to the lateral mass articulations bilaterally at C1-C2, are likely developmental. Generally mi ld/moderate multilevel degenerative disk disease and facet arthrosis, this appears greatest at the C6 -C7 level where disc marginal osteophytes and uncovertebral joint changes, cause mild to moderate can al and foraminal stenoses. Vertebral alignment: No traumatic malalignment. Preserved normal cervical lordosis. Neck soft tissues: No acute finding. Small foci of gas noted in the region of the right medial subcla vian vein and just deep to the SCM, likely venous gas probably sequela of IV access or injection. Other: Lungs show mild scarring without evidence of acute infiltrate or pneumothorax. Visualized airw ay is patent. IMPRESSION: CT head: 1. No acute intracranial CT abnormality. 2. Atrophy and chronic microvascular ischemic changes. 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 CT cervical spine: 1. No evidence of acute cervical spine fracture or traumatic malalignment. 2. Mild/moderate cervical spondylosis.
[2023-12-17] MEDS ORDERED: NALOXONE 0.4 MG/ML 1 ML VIAL IV PRN (19:59)
[2023-12-17] MEDS: VALPROATE SODIUM 250 MG in SODIUM CHLORIDE 0.9% 100 ML IVPB STA (20:00)
[2023-12-17] MEDS: SODIUM CHLORIDE 0.9% 1,000 ML IV SCH (20:36)
[2023-12-18 01:42] LABS: Carbamazepine (Tegretol) 17.4 UG/ML (4.0-12.0)
[2023-12-18] MEDS: SODIUM CHLORIDE 0.9% 1,000 ML IV SCH (03:58)
[2023-12-18 04:00] VITALS: RESP 16
[2023-12-18 08:33] LABS: Basophils # (A) 0.05 X 10*3/uL (0.00-0.10); Eosinophils # (A) 0.02 X 10*3/uL (0.04-0.35); Eosinophils % (A) 0.4 %; HGB 9.8 g/dL (12.0-15.0); Lymphocytes # (A) 1.26 X 10*3/uL (0.90-5.00); Lymphocytes % (A) 24.4 %; MCH 30.6 pg (27.0-32.0); MCHC 31.6 g/dL (32.0-37.0); MCV 96.9 FL (80.0-97.0); Mean Platelet Volume 9.7 FL (9.5-12.2); Monocytes # (A) 0.56 X 10*3/uL (0.20-1.00); Monocytes % (A) 10.9 %; NRBC Per 100 WBC 0 X 10*3/uL (0.00-0.01); Neutrophils # (A) 3.25 X 10*3/uL (1.80-7.70); Neutrophils % (A) 62.9 %; Platelet Count 351 X 10*3/uL (140-440); RDW 12.6 % (11.5-14.5); WBC 5.16 X 10*3/uL (4.50-10.00)
[2023-12-18] MEDS: ASPIRIN 81 MG PO SCH (10:23)
[2023-12-18] MEDS: PANTOPRAZOLE 40 MG TABLET PO SCH (10:23)
[2023-12-18] MEDS: DIVALPROEX ER 250 MG TAB.ER.24H PO SCH (10:49)
[2023-12-18] MEDS: LEVOTHYROXINE 125 MCG TAB PO SCH (10:49)
[2023-12-18] MEDS: TOPIRAMATE 100 MG TAB PO SCH (11:57)
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
[2023-12-18 15:09] VITALS: BP 114/65; PULSE 80; TEMP 98.1
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
[2023-12-18] MEDS: ACETAMINOPHEN TAB 500 MG TAB PO SCH (15:19)
[2023-12-18] MEDS ORDERED: ATORVASTATIN 20 MG TAB PO SCH (21:00)
[2023-12-18] MEDS ORDERED: DONEPEZIL 10 MG TAB PO SCH (21:00)
[2023-12-18 22:04] LABS: BUN/Creat Ratio 16.75 Ratio (12.00-20.00); Blood Urea Nitrogen 13.4 mg/dL (9.0-27.0); Carbon Dioxide 20.6 mmol/L (21.6-31.8); Chloride 108 mmol/L (96-109); Glucose 125 mg/dL (70-110); Potassium 4.2 mmol/L (3.5-5.5); Sodium 142 mmol/L (135-145)
--- NOTE | 2023-12-18 22:16 | EEG ---
ELECTROENCEPHALOGRAM REPORT PREAMBLE: This is a 58-year-old female with seizure, dementia. EEG FINDINGS: This is a 21-channel digital EEG recorded with video component, utilizing 10/20 international system with referential and bipolar montages. Background consists of well-developed, but poorly regulated, mixed frequencies of 9 to 10 hertz alpha, intermixed with some theta activity seen in bihemispheric region. Background is posterior dominant, does not seem to be reactive to eye opening or closing. A lot of myogenic activity was seen in the bitemporal region. Occasional generalized 1-2 hertz delta was seen. Different stages of sleep were not seen. No focal or generalized epileptiform activity was seen. IMPRESSION: This is an abnormal EEG due to intermittent background slowing, mild degree. This is suggestive of mild encephalopathy. No obvious epileptiform activity was seen. EEG was technically limited due to frequent myogenic activity seen during the study. MMFENGL / JIEN: [id number] /
== END 2023-12-18 16:53 ==
LOC: EC 17:33 → EEVIPCON 17:33 → 6NMEDSUR 19:59
PROVIDERS: ADMIT Hospitalist; ATTEND Hospitalist
DX: T42.1X1A Poisoning by iminostilbenes, accidental (unintentional), initial encounter (principal); G40.909 Epilepsy, unspecified, not intractable, without status epilepticus; S01.111A Laceration without foreign body of right eyelid and periocular area, initial encounter; F03.911 Unspecified dementia, unspecified severity, with agitation; F32.A Depression, unspecified; E78.5 Hyperlipidemia, unspecified; G43.909 Migraine, unspecified, not intractable, without status migrainosus; K21.9 Gastro-esophageal reflux disease without esophagitis; M47.812 Spondylosis without myelopathy or radiculopathy, cervical region; I69.320 Aphasia following cerebral infarction; E03.9 Hypothyroidism, unspecified; F41.9 Anxiety disorder, unspecified; D64.9 Anemia, unspecified; R94.01 Abnormal electroencephalogram [EEG]; R29.6 Repeated falls; Z79.82 Long term (current) use of aspirin; Z79.890 Hormone replacement therapy; Z79.899 Other long term (current) drug therapy; Z23 Encounter for immunization; Z87.891 Personal history of nicotine dependence; W19.XXXA Unspecified fall, initial encounter; Y92.129 Unspecified place in nursing home as the place of occurrence of the external cause
CPT/HCPCS: 96361 ×2; 12011; 90471; 96365; 96374; 99285; 36415; 95816; 93005; 92610; 80156 ×2; 80164; 80053; 80048; 83735; 85025 ×2; 72125; 70450; 90715; G0378 ×2; J2060; 96366; 96375

== ENCOUNTER 2023-12-18 22:09 | Emergency (ER) | payer MEDICARE, OTHER ==
--- NOTE | 2023-12-18 22:35 | ED ---
Nausea/Vomiting/Diarrhea HPI - General Chief complaint: Nausea/Vomiting/Diarrhea Stated complaint: Possible GI Bleed Time Seen by Provider: 12/18/23 22:14 Source: EMS, RN notes reviewed, old records reviewed Mode of arrival: EMS - History of Present Illness Initial comments: This is a 58-year-old female who is unable to provide history secondary to being nonverbal, patient does not and is not able to answer current questions. Patient sent in for evaluation regarding an episode of vomiting. This episode occurred prior to arrival there was concern that it may have or may be coffee- ground or blood. Patient is on a blood thinners. Patient had a fall earlier in the day seen in her ER and cleared for discharge after having imaging MD complaint: nausea, vomiting -: hour(s) Description of Vomiting: food contents, watery, bilious Associated Abdominal Pain: No Location: epigastric Radiation: none Severity: severe Severity scale (1-10): 9 Consistency: constant Improves with: none - Related Data Home Medications Medication Instructions Recorded Confirmed Citalopram Hydrobromide [CeleXA] 40 mg PO DAILY 04/07/19 12/18/23 Levothyroxine Sodium [Synthroid] 125 mcg PO DAILY 09/12/22 12/18/23 Omeprazole [PriLOSEC] 40 mg PO DAILY 09/12/22 12/18/23 Acetaminophen Tab [Tylenol] 500 mg PO TID 12/17/23 12/18/23 Aspirin 81 mg PO DAILY 12/17/23 12/18/23 Atorvastatin [Lipitor] 20 mg PO HS 12/17/23 12/18/23 Divalproex ER [Depakote ER] 250 mg PO BID 12/17/23 12/18/23 Donepezil 23mg 23 mg PO HS 12/17/23 12/18/23 Lactulose 20 gm PO DAILY 12/17/23 12/18/23 Loperamide HCl [Imodium A-D] 2 - 4 mg PO QID PRN MDD 8mg 12/17/23 12/18/23 Oyster Shell Calcium-Vitamin D 1 tab PO DAILY 12/17/23 12/18/23 500mg-200iu Topiramate [Topamax] 100 mg PO TID@0500,1300,2100 12/17/23 12/18/23 Baclofen [Lioresal] 20 mg PO TID 12/18/23 12/18/23 carBAMazepine [TEGretol XR] 400 mg PO DAILY 12/18/23 12/18/23 carBAMazepine [TEGretol XR] 600 mg PO HS 12/18/23 12/18/23 Previous Rx's Medication Instructions Recorded LORazepam [Ativan] 1 mg PO Q8H PRN #2 tab 12/18/23 Allergies Allergy/AdvReac Type Severity Reaction Status Date / Time No Known Allergies Allergy Verified 12/18/23 22:41 Review of Systems ROS Statement: Those systems with pertinent positive or pertinent negative responses have been documented in the HPI. ROS Other: All systems not noted in ROS Statement are negative. 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 epilepsy since childhood.migraines.anemia.falls. old fx of left radius.puree foods. Living at [facility] since . non verbal since History of Any Multi-Drug Resistant Organisms: None Reported Past Surgical History: Cholecystectomy Past Anesthesia/Blood Transfusion Reactions: No Reported Reaction Past Psychological History: Anxiety, Depression Smoking Status: Former smoker Past Alcohol Use History: None Reported Past Drug Use History: None Reported - Past Family History Mother Additional Family Medical History / Comment(s): colon ca Father Additional Family Medical History / Comment(s): lung ca Sister(s) Additional Family Medical History / Comment(s): breast cancer General Exam General appearance: alert, in no apparent distress Head exam: Present: atraumatic, normocephalic, normal inspection Eye exam: Present: normal appearance, PERRL, EOMI. Absent: scleral icterus, conjunctival injection, periorbital swelling ENT exam: Present: normal exam, mucous membranes moist Neck exam: Present: normal inspection. Absent: tenderness, meningismus, lymphadenopathy Respiratory exam: Present: normal lung sounds bilaterally. Absent: respiratory distress, wheezes, rales, rhonchi, stridor Cardiovascular Exam: Present: regular rate, normal rhythm, normal heart sounds. Absent: systolic murmur, diastolic murmur, rubs, gallop, clicks GI/Abdominal exam: Present: soft, normal bowel sounds. Absent: distended, tenderness, guarding, rebound, rigid Extremities exam: Present: normal inspection, full ROM, normal capillary refill. Absent: tenderness, pedal edema, joint swelling, calf tenderness Back exam: Present: normal inspection Neurological exam: Present: alert, oriented X3, CN II-XII intact Psychiatric exam: Present: normal affect, normal mood Skin exam: Present: warm, dry, intact, normal color. Absent: rash Course Vital Signs 12/18/23 12/18/23 12/18/23 22:13 23:00 23:30 Temperature 98.1 F Pulse Rate 79 75 74 Respiratory 18 18 18 Rate Blood Pressure 123/65 113/69 106/64 O2 Sat by Pulse 100 95 95 Oximetry 12/19/23 12/19/23 00:00 01:51 Temperature Pulse Rate 74 72 Respiratory 18 18 Rate Blood Pressure 105/61 106/62 O2 Sat by Pulse 95 95 Oximetry - Reevaluation(s) Reevaluation #1: 12/18/23 22:49 Medical records reviewed Reevaluation #2: 12/18/23 23:59 Patient has no active vomiting and no vomiting of coffee-ground emesis here in the ER Reevaluation #3: 12/18/23 23:59 Patient informed of results questions answered Reevaluation #4: Was pt. sent in by a medical professional or institution (, PA, GUIDANCE DIRECTOR, urgent care, hospital, or halfway...) When possible be specific @ -no Did you speak to anyone other than the patient for history (EMS, parent, family, police, friend...)? What history was obtained from this source @ -no Did you review nursing and triage notes (agree or disagree)? Why? @ -agree Are old charts reviewed (outside hosp., previous admission, EMS record, old EKG, old radiological studies, urgent care reports/EKG's, halfway records)? Report findings @ -yes Differential Diagnosis (chest pain, altered mental status, abdominal pain women, abdominal pain men, vaginal bleeding, weakness, fever, dyspnea, syncope, headache, dizziness, GI bleed, back pain, seizure, CVA, palpatations, mental health, musculoskeletal)? @ -prior EKG interpreted by me (3pts min.). @ -no X-rays interpreted by me (1pt min.). @ -no CT interpreted by me (1pt min.). @ -no U/S interpreted by me (1pt. min.). @ -no What testing was considered but not performed or refused? (CT, X-rays, U/S, labs)? Why? @ -none What meds were considered but not given or refused? Why? @ -none Did you discuss the management of the patient with other professionals (professionals i.e. Dr., PA, GUIDANCE DIRECTOR, lab, RT, psych nurse, social work specialist, compressed gas plant worker, teacher, radiological defense officer, case assistant)? Give summary @ -no Was smoking cessation discussed for >3mins.? @ -no Was critical care preformed (if so, how long)? @ -no Were there social determinants of health that impacted care today? How? (Homelessness, low income, unemployed, alcoholism, drug addiction, transportation, low edu. Level, literacy, decrease access to med. care, assisted, rehab)? @ -none Was there de-escalation of care discussed even if they declined (Discuss DNR or withdrawal of care, Hospice)? DNR status @ -no What co-morbidities impacted this encounter? (DM, HTN, Smoking, COPD, CAD, Cancer, CVA, ARF, Chemo, Hep., AIDS, mental health diagnosis, sleep apnea, morbid obesity)? @ -none Was patient admitted / discharged? Hospital course, mention meds given and route, prescriptions, significant lab abnormalities, going to OR and other pertinent info. @ - 58 female to ER for suspected related vomiting of coffee-ground emesis. Patient has normal vital signs and no active vomiting here in the ER and normal hemoglobin. Patient can be discharged Discharge Undiagnosed new problem with uncertain prognosis? @ -no Drug Therapy requiring intensive monitoring for toxicity (Heparin, Nitro, Insulin, Cardizem)? @ -no Were any procedures done? @ -no Diagnosis/symptom? @ -Nausea vomiting diarrhea, gastroenteritis Acute, or Chronic, or Acute on Chronic? @ -Acute Uncomplicated (without systemic symptoms) or Complicated (systemic symptoms)? @ -Complicated Side effects of treatment? @ -no Exacerbation, Progression, or Severe Exacerbation? @ -exacerbation Poses a threat to life or bodily function? How? (Chest pain, [place], [place], pneumonia, PE, COPD, DKA, ARF, appy, cholecystitis, CVA, Diverticulitis, Homicidal, Suicidal, threat to staff... and all critical care pts) @ -no Reevaluation #5: Differential GI Bleed: Esophageal varices, aortoenteric fistula, [place], gastritis, peptic ulcer disease, diverticulosis, inflammatory bowel disease, hemorrhoids, fissure, colitis, malignancy, Meckels diverticulum, this is not meant to be an all- inclusive list. Medical Decision Making - Medical Decision Making 58 female to ER for suspected related vomiting of coffee-ground emesis. Patient has normal vital signs and no active vomiting here in the ER and normal hemogl obin. Patient can be discharged - Lab Data Result diagrams: 12/18/23 22:35 12/18/23 22:35 Lab Results 12/18/23 12/18/23 12/18/23 Range/Units 22:30 22:35 22:35 WBC 6.4 (3.8-10.6) k/uL RBC 3.19 L (3.80-5.40) m/uL Hgb 9.7 L (11.4-16.0) gm/dL Hct 30.9 L (34.0-46.0) % MCV 96.8 (80.0-100.0) fL MCH 30.5 (25.0-35.0) pg MCHC 31.5 (31.0-37.0) g/dL RDW 12.5 (11.5-15.5) % Plt Count 319 (150-450) k/uL MPV 7.2 Neutrophils % 71 % Lymphocytes % 16 % Monocytes % 9 % Eosinophils % 1 % Basophils % 1 % Neutrophils # 4.6 (1.3-7.7) k/uL Lymphocytes # 1.1 (1.0-4.8) k/uL Monocytes # 0.6 (0-1.0) k/uL Eosinophils # 0.0 (0-0.7) k/uL Basophils # 0.0 (0-0.2) k/uL PT 11.1 (10.0-12.5) sec INR 1.0 (<1.2) APTT 22.2 (22.0-30.0) sec Sodium (137-145) mmol/L Potassium (3.5-5.1) mmol/L Chloride (98-107) mmol/L Carbon Dioxide (22-30) mmol/L Anion Gap mmol/L BUN (7-17) mg/dL Creatinine (0.52-1.04) mg/dL Est GFR (CKD-EPI)AfAm (>60 ml/min/1.73 sqM) Est GFR (CKD-EPI)NonAf (>60 ml/min/1.73 sqM) Glucose (74-99) mg/dL Calcium (8.4-10.2) mg/dL Magnesium (1.6-2.3) mg/dL Total Bilirubin (0.2-1.3) mg/dL AST (14-36) U/L ALT (4-34) U/L Alkaline Phosphatase (38-126) U/L Total Protein (6.3-8.2) g/dL Albumin (3.5-5.0) g/dL Lipase (23-300) U/L Blood Type O Positive Blood Type Confirm Blood Type Recheck No Previous Record Bld Type Recheck Status CABO Indicated Antibody Screen NEGATIVE Spec Expiration Date 12/21/2023 - 232912/18/23 12/19/23 Range/Units 22:35 00:58 WBC (3.8-10.6) k/uL RBC (3.80-5.40) m/uL Hgb (11.4-16.0) gm/dL Hct (34.0-46.0) % MCV (80.0-100.0) fL MCH (25.0-35.0) pg MCHC (31.0-37.0) g/dL RDW (11.5-15.5) % Plt Count (150-450) k/uL MPV Neutrophils % % Lymphocytes % % Monocytes % % Eosinophils % % Basophils % % Neutrophils # (1.3-7.7) k/uL Lymphocytes # (1.0-4.8) k/uL Monocytes # (0-1.0) k/uL Eosinophils # (0-0.7) k/uL Basophils # (0-0.2) k/uL PT (10.0-12.5) sec INR (<1.2) APTT (22.0-30.0) sec Sodium 139 (137-145) mmol/L Potassium 3.8 (3.5-5.1) mmol/L Chloride 108 H (98-107) mmol/L Carbon Dioxide 26 (22-30) mmol/L Anion Gap 5 mmol/L BUN 14 (7-17) mg/dL Creatinine 0.72 (0.52-1.04) mg/dL Est GFR (CKD-EPI)AfAm >90 (>60 ml/min/1.73 sqM) Est GFR (CKD-EPI)NonAf >90 (>60 ml/min/1.73 sqM) Glucose 120 H (74-99) mg/dL Calcium 9.0 (8.4-10.2) mg/dL Magnesium 1.7 (1.6-2.3) mg/dL Total Bilirubin 0.3 (0.2-1.3) mg/dL AST 20 (14-36) U/L ALT 19 (4-34) U/L Alkaline Phosphatase 82 (38-126) U/L Total Protein 6.1 L (6.3-8.2) g/dL Albumin 3.6 (3.5-5.0) g/dL Lipase 413 H (23-300) U/L Blood Type Blood Type Confirm O Positive Blood Type Recheck Bld Type Recheck Status Antibody Screen Spec Expiration Date Disposition Clinical Impression: Gastroenteritis, Nausea & vomiting Disposition: HOME SELF-CARE Condition: Good Instructions (If sedation given, give patient instructions): Acute Nausea and Vomiting (ED) Is patient prescribed a controlled substance at d/c from ED?: No Referrals: Sharri Yu MD [STAFF PHYSICIAN] - 1-2 days Time of Disposition: 23:50
[2023-12-18 22:47] LABS: Basophils % (A) 1 %; Eosinophils % (A) 1 %; HCT 30.9 % (34.0-46.0); HGB 9.7 gm/dL (11.4-16.0); Lymphocytes # (A) 1.1 k/uL (1.0-4.8); Lymphocytes % (A) 16 %; MCH 30.5 pg (25.0-35.0); MCHC 31.5 g/dL (31.0-37.0); MCV 96.8 fL (80.0-100.0); Mean Platelet Volume 7.2; Monocytes # (A) 0.6 k/uL (0-1.0); Monocytes % (A) 9 %; Neutrophils # (A) 4.6 k/uL (1.3-7.7); Neutrophils % (A) 71 %; Platelet Count 319 k/uL (150-450); RBC 3.19 m/uL (3.80-5.40); RDW 12.5 % (11.5-15.5); WBC 6.4 k/uL (3.8-10.6)
[2023-12-18] MEDS: SODIUM CHLORIDE 0.9% 500 ML 500 ML IV STA (22:48)
[2023-12-18 22:49] VITALS: RESP 18; TEMP 98.1
[2023-12-18] MEDS: PANTOPRAZOLE 40 MG/10 ML VIAL IVP STA (22:49)
[2023-12-18] MEDS: ONDANSETRON 4 MG/2 ML VIAL IVP STA (22:49)
[2023-12-18 22:56] LABS: ALT 19 U/L (4-34); AST 20 U/L (14-36); African American GFR (CKD) >90 (>60 ml/min/1.73 sqM); Albumin 3.6 g/dL (3.5-5.0); Alkaline Phosphatase 82 U/L (38-126); Anion Gap 5 mmol/L; Blood Urea Nitrogen 14 mg/dL (7-17); Carbon Dioxide 26 mmol/L (22-30); Chloride 108 mmol/L (98-107); Glucose 120 mg/dL (74-99); Lipase 413 U/L (23-300); Magnesium 1.7 mg/dL (1.6-2.3); Non-African American GFR(CKD) >90 (>60 ml/min/1.73 sqM); Potassium 3.8 mmol/L (3.5-5.1); Sodium 139 mmol/L (137-145); Total Bilirubin 0.3 mg/dL (0.2-1.3); Total Protein 6.1 g/dL (6.3-8.2)
[2023-12-18 23:48] LABS: Partial Thromboplastin Time 22.2 sec (22.0-30.0); Prothrombin Time 11.1 sec (10.0-12.5)
[2023-12-19 02:03] VITALS: BP 106/62; PULSE 72
== END 2023-12-19 01:52 | disposition home or self-care (01) ==
LOC: EC 22:09
DX: K52.9 Noninfective gastroenteritis and colitis, unspecified (principal); K21.9 Gastro-esophageal reflux disease without esophagitis; Z79.899 Other long term (current) drug therapy; Z87.891 Personal history of nicotine dependence
CPT/HCPCS: 36415; 86900; 86901; 80053; 83690; 83735; 85025; 85610; 85730; 86850; 99285; 96374; 96375; 96361; J2405; C9113

== ENCOUNTER 2024-01-08 23:00 | Emergency (ER) | payer MEDICARE, OTHER ==
--- NOTE | 2024-01-09 00:42 | ED ---
Neck Injury/Pain HPI - General Chief Complaint: Neck Pain/Injury Stated Complaint: neck pain Time Seen by Provider: 01/08/24 23:13 Mode of arrival: EMS - History of Present Illness Initial Comments: 58-year-old female with history of dementia presents from [facility]. The staff reports that the patient normally walks completely upright and this evening she started walking hunched over. They want her evaluated for neck pain. The patient is nonverbal at baseline. I am not told of any injury or trauma. Patient is freely moving her extremities in the bed. - Related Data Home Medications Medication Instructions Recorded Confirmed Citalopram Hydrobromide [CeleXA] 40 mg PO DAILY 04/07/19 12/18/23 Levothyroxine Sodium [Synthroid] 125 mcg PO DAILY 09/12/22 12/18/23 Omeprazole [PriLOSEC] 40 mg PO DAILY 09/12/22 12/18/23 Acetaminophen Tab [Tylenol] 500 mg PO TID 12/17/23 12/18/23 Aspirin 81 mg PO DAILY 12/17/23 12/18/23 Atorvastatin [Lipitor] 20 mg PO HS 12/17/23 12/18/23 Divalproex ER [Depakote ER] 250 mg PO BID 12/17/23 12/18/23 Donepezil 23mg 23 mg PO HS 12/17/23 12/18/23 Lactulose 20 gm PO DAILY 12/17/23 12/18/23 Loperamide HCl [Imodium A-D] 2 - 4 mg PO QID PRN MDD 8mg 12/17/23 12/18/23 Oyster Shell Calcium-Vitamin D 1 tab PO DAILY 12/17/23 12/18/23 500mg-200iu Topiramate [Topamax] 100 mg PO TID@0500,1300,2100 12/17/23 12/18/23 Baclofen [Lioresal] 20 mg PO TID 12/18/23 12/18/23 carBAMazepine [TEGretol XR] 400 mg PO DAILY 12/18/23 12/18/23 carBAMazepine [TEGretol XR] 600 mg PO HS 12/18/23 12/18/23 Previous Rx's Medication Instructions Recorded LORazepam [Ativan] 1 mg PO Q8H PRN #2 tab 12/18/23 Allergies Allergy/AdvReac Type Severity Reaction Status Date / Time No Known Allergies Allergy Verified 01/08/24 23:10 Review of Systems ROS Statement: Those systems with pertinent positive or pertinent negative responses have been documented in the HPI. ROS Other: All systems not noted in ROS Statement are negative. 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 epilepsy since childhood.migraines.anemia.falls. old fx of left radius.puree foods. Living [facility] since . non verbal since History of Any Multi-Drug Resistant Organisms: None Reported Past Surgical History: Cholecystectomy Past Anesthesia/Blood Transfusion Reactions: No Reported Reaction Past Psychological History: Anxiety, Depression Smoking Status: Former smoker Past Alcohol Use History: None Reported Past Drug Use History: None Reported - Past Family History Mother Additional Family Medical History / Comment(s): colon ca Father Additional Family Medical History / Comment(s): lung ca Sister(s) Additional Family Medical History / Comment(s): breast cancer General Exam Limitations: language barrier General appearance: alert, in no apparent distress Head exam: Present: atraumatic, normocephalic Eye exam: Present: normal appearance, EOMI Neck exam: Present: normal inspection. Absent: tenderness, meningismus Respiratory exam: Present: normal lung sounds bilaterally. Absent: respiratory distress, wheezes, rales, rhonchi, stridor Cardiovascular Exam: Present: regular rate, normal rhythm, normal heart sounds. Absent: systolic murmur, diastolic murmur, rubs, gallop, clicks Extremities exam: Present: normal inspection Neurological exam: Present: alert, altered (Dementia, patient at baseline), normal gait Skin exam: Present: normal color Course Vital Signs 01/08/24 01/09/24 01/09/24 23:04 01:09 03:01 Temperature 97.4 F L 97.6 F Pulse Rate 79 80 82 Respiratory 16 18 16 Rate Blood Pressure 121/60 100/65 102/64 O2 Sat by Pulse 100 100 100 Oximetry Medical Decision Making - Medical Decision Making Was pt. sent in by a medical professional or institution (, PA, SOLAR PROJECT COORDINATION SPECIALIST, urgent care, hospital, or care home...) When possible be specific @ -Patient sent from care home Did you speak to anyone other than the patient for history (EMS, parent, family, police, friend...)? What history was obtained from this source @ -No Did you review nursing and triage notes (agree or disagree)? Why? @ -I reviewed and agree with nursing and triage notes Were old charts reviewed (outside hosp., previous admission, EMS record, old EKG, old radiological studies, urgent care reports/EKG's, care home records)? Report findings @ -No old charts were reviewed Differential Diagnosis (chest pain, altered mental status, abdominal pain women, abdominal pain men, vaginal bleeding, weakness, fever, dyspnea, syncope, headache, dizziness, GI bleed, back pain, seizure, CVA, palpatations, mental health, musculoskeletal)? @ -Differential includes cervical strain, cervical sprain, fracture, radiculopathy, herniated disc, this is not an all-inclusive list EKG interpreted by me (3pts min.). @ -As above X-rays interpreted by me (1pt min.). @ -X-rays of the cervical spine show no acute osseous pathology. Severe multilevel degenerative changes of the cervical spine. CT interpreted by me (1pt min.). @ -None done U/S interpreted by me (1pt. min.). @ -None done What testing was considered but not performed or refused? (CT, X-rays, U/S, labs)? Why? @ -None What meds were considered but not given or refused? Why? @ -None Did you discuss the management of the patient with other professionals (professionals i.e. , PA, SOLAR PROJECT COORDINATION SPECIALIST, lab, RT, psych nurse, healthcare social worker, inspector air carrier, teacher, postal delivery officer, case maker)? Give summary @ -No Was smoking cessation discussed for >3mins.? @ -No Was critical care preformed (if so, how long)? @ -No Were there social determinants of health that impacted care today? How? (Homelessness, low income, unemployed, alcoholism, drug addiction, transportation, low edu. Level, literacy, decrease access to med. care, residential, rehab)? @ -No Was there de-escalation of care discussed even if they declined (Discuss DNR or withdrawal of care, Hospice)? DNR status @ -No What co-morbidities impacted this encounter? (DM, HTN, Smoking, COPD, CAD, Cancer, CVA, ARF, Chemo, Hep., AIDS, mental health diagnosis, sleep apnea, morbid obesity)? @ -None Was patient admitted / discharged? Hospital course, mention meds given and route, prescriptions, significant lab abnormalities, going to OR and other pertinent info. @ -58-year-old female presenting from care home. Patient has dementia and is nonverbal. Staff reports that the patient started walking hunched over this evening when she normally walks straight upright. They wanted her evaluated for neck pain. On my exam she does not wince or show any signs of pain on palpation of the neck. She is freely moving all of her extremities. She is seen with normal upright gait. X-rays are negative. Patient is discharged back to care home. Follow-up with PCP. Report back to ER for any new or worsening symptoms. My attending is Dr. Storey Undiagnosed new problem with uncertain prognosis? @ -No Drug Therapy requiring intensive monitoring for toxicity (Heparin, Nitro, Insulin, Cardizem)? @ -No Were any procedures done? @ -No Diagnosis/symptom? @ -Dementia Acute, or Chronic, or Acute on Chronic? @ -Chronic Uncomplicated (without systemic symptoms) or Complicated (systemic symptoms)? @ -Complicated Side effects of treatment? @ -No Exacerbation, Progression, or Severe Exacerbation? @ -No Poses a threat to life or bodily function? How? (Chest pain, [place], [place], pneumonia, PE, COPD, DKA, ARF, appy, cholecystitis, CVA, Diverticulitis, Homicidal, Suicidal, threat to staff... and all critical care pts) @ -No immediate threat Disposition Clinical Impression: Dementia Disposition: HOME SELF-CARE Condition: Good Instructions (If sedation given, give patient instructions): Dementia (ED) Additional Instructions: Follow-up with PCP. Report back to ER with any new or worsening symptoms. Is patient prescribed a controlled substance at d/c from ED?: No Referrals: Rick Harry DO [Primary Care Provider] - 1-2 days Time of Disposition: 01:24
--- NOTE | 2024-01-09 02:51 | XR ---
EXAM: XR Cervical Spine, 2 or 3 Views CLINICAL HISTORY: ITS.REASON XR Reason: possible neck pain TECHNIQUE: Frontal and lateral views of the cervical spine. COMPARISON: No relevant prior studies available. FINDINGS: Vertebrae: Advanced degenerative changes of the cervical spine.. No definite fracture. Normal alignment. Disc spaces: Diffuse discogenic disc disease with joint space narrowing and facet arthropathy. Soft tissues: Unremarkable. IMPRESSION: No acute osseous pathology Severe multilevel degenerative changes of the cervical spine
[2024-01-09 03:20] VITALS: BP 102/64; PULSE 82; RESP 16; TEMP 97.6
== END 2024-01-09 03:03 | disposition home or self-care (01) ==
LOC: EC 23:00
DX: F03.90 Unspecified dementia, unspecified severity, without behavioral disturbance, psychotic disturbance, mood disturbance, and anxiety (principal); Z87.891 Personal history of nicotine dependence; Z90.49 Acquired absence of other specified parts of digestive tract
CPT/HCPCS: 72040; 99284